=== PATIENT | male | born 1980 | race Caucasian/White ===

== ENCOUNTER 2022-08-16 00:04 | Inpatient (IN) | payer OTHER ==
[~2022-08-16] VITALS: Ht 175.3 cm; Wt 90.7 kg
[2022-08-16 00:06] VITALS: BP 192/99
--- NOTE | 2022-08-16 00:11 | NUR ---
TO BED 12 FOLLOWING TRIAGE
[2022-08-16] MEDS ORDERED: NITROGLYCERIN 2% 1 GM PKT TP ONE (00:55)
[2022-08-16] MEDS ORDERED: MORPHINE SULFATE 4 MG/ML SYR IVP ONE (00:55)
[2022-08-16] MEDS ORDERED: ENOXAPARIN 80 MG/0.8 ML SYR SUBQ ONE (00:55)
[2022-08-16] MEDS ORDERED: ENALAPRILAT 2.5 MG/2 ML VIAL IVP ONE (00:55)
[2022-08-16] MEDS ORDERED: LISI20TA29 PO (01:05)
[2022-08-16] MEDS ORDERED: SIMV-371 PO (01:05)
--- NOTE | 2022-08-16 01:10 | NUR ---
RADIOLOGY AT BEDSIDE
[2022-08-16 01:24] LABS: BASOPHILS # (AUTO) 0.1 K/uL (0.00-0.22); BASOPHILS % (AUTO) 0.9 % (0.0-2.0); EOSINOPHILS # (AUTO) 0.4 K/uL (0-0.4); EOSINOPHILS % (AUTO) 4.9 % (0.0-4.0); HEMATOCRIT 46.9 % (36-52); HEMOGLOBIN 15.8 g/dL (12.0-18.0); MEAN CORPUSCULAR HEMOGLOBIN 29 pg (27-31); MEAN CORPUSCULAR HGB CONC 34 g/dL (33-37); MONOCYTES # (AUTO) 0.6 K/uL (0.8-1.0); MONOCYTES % (AUTO) 7.8 % (1.7-9.3); NEUTROPHILS # (AUTO) 4.6 K/uL (1.8-7.7); NEUTROPHILS % (AUTO) 60.4 % (42.2-75.2); PLATELET COUNT (AUTO) 257 K/uL (140-450); RED BLOOD CELL COUNT(AUTO) 5.39 MIL/uL (4.20-6.10); RED CELL DISTRIBUTION WIDTH 14.3 % (11.6-13.7); WHITE BLOOD COUNT (AUTO) 7.6 K/uL (4.8-10.8)
[2022-08-16 01:42] LABS: ALBUMIN 3.4 g/dL (3.4-5.0); ANION GAP 15.1 (8-16); CARBON DIOXIDE 28.3 mmol/L (21-32); CREATININE 1.3 mg/dL (0.6-1.3); POTASSIUM 4.4 mmol/L (3.5-5.1); TOTAL BILIRUBIN 0.3 mg/dL (0.0-1.0)
[2022-08-16 01:45] LABS: D-DIMER < 100 ng/ml (0-400)
--- NOTE | 2022-08-16 02:06 | NUR ---
RECEIVED CALL FROM MAXX ENRIQUEZ ([facility]) PROIVIDED UPDATE ON PATIENT'S CLINICAL STATUS.
--- NOTE | 2022-08-16 03:15 | NUR ---
PATIENT INFORMED THAT MD IS PLANNING TO ADMIT FOR FURTHER OBSERVATION AND MEDICAL MANAGEMENT
[2022-08-16] MEDS ORDERED: ASPIRIN 325 MG TAB PO ONE (04:25)
--- NOTE | 2022-08-16 04:36 | NUR ---
ADMINISTERED ASPIRIN 325MG PER MD ORDERS
[2022-08-16 04:37] VITALS: BP 121/70
--- NOTE | 2022-08-16 07:23 | NUR ---
Pt report given to ESAU (EYAD SILVA). Transfer of care at this time.
--- NOTE | 2022-08-16 07:40 | NUR ---
PT STATED THAT HE "WANTS TO LEAVE AND I'M CLAUSTROPHOBIC, I DONT WANNA BE HERE ANYMORE." OPENED CURTAINS AND TURNED ON PT LIGHTS, BED IN LOWEST POSITION AND SIDERAILS DOWN. DR MCGEE PAGED AND STATED THAT HE WILL BE HERE IN 10 MIN. PT INFORMED THAT NURSE IS UNABLE TO EXPLAIN THE RISKS OF LEAVING AMA. PT STATED THAT HE WOULD WAIT FOR THE DOCTOR.
--- NOTE | 2022-08-16 07:58 | NUR ---
PT STATED HE FEELS LIKE HES BEING "LOCKED UP", I EXPLAINED TO THE PATIENT THAT HE HAS RIGHT TO LEAVE HE WOULD LIKE. I INFORMED PT THAT DR MCGEE HAS BEEN NOTIFIED AND WILL BE HERE SHORTLY TO RADAMES TO HIM AND EXPLAIN AMA. PT STATED HE WANTED TO LEAVE AND DIDNT WANT TO TALK.
--- NOTE | 2022-08-16 07:59 | NUR ---
IV removed, catheter intact and site benign. Applied folded 4x4 gauze and tape to stop bleeding. AMA FORM NOT SIGNED. PT ELOPED FROM FACILITY. DR MCGEE MADE AWARE
== END 2022-08-16 07:59 | disposition left against medical advice (07) | DRG 203 ==
LOC: MED 00:04 → MTU 04:50
PROVIDERS: ADMIT Student in an Organized Health Care Education/Training Program; ATTEND Student in an Organized Health Care Education/Training Program
DX: R07.9 Chest pain, unspecified (principal); E78.5 Hyperlipidemia, unspecified; I10 Essential (primary) hypertension; Z20.822 Contact with and (suspected) exposure to COVID-19
CPT/HCPCS: 36415; 71045; 80053; 83880; 84484; 85025; 85379; 85730; 93005; 96372; 96374; 96375; 99291; J1650; J2270; J3490; Q0092